=== PATIENT | female | born 1950 | race American Indian/Alaskan Native ===

== ENCOUNTER 2017-03-04 08:09 | Day surgery (SDC) | payer MEDICARE, OTHER ==
[2017-03-04] MEDS ORDERED: NACL 0.9% 1000 ML 1,000 ML ONE (08:44)
[2017-03-04] MEDS ORDERED: XYLOCAINE MPF 2% ONE ×2 (09:00→18:00)
[2017-03-04] MEDS ORDERED: NACL BACTERIOSTATIC INFILTRATI ONE (09:11)
--- NOTE | 2017-03-04 10:42 | Anesthesia Consultation ---
Anesthesia Consult and Med Hx Date of service: 03/04/17 - Airway Anesthetic Teeth Evaluation: Good, Caps (back) ROM Head & Neck: Adequate Mental/Hyoid Distance: Adequate Mallampati Class: Class II Intubation Access Assessment: Probably Good - Pulmonary Exam CTA: Yes - Cardiac Exam Cardiac Exam: RRR - Pre-Operative Health Status ASA Pre-Surgery Classification: ASA2 Proposed Anesthetic Plan: MAC - Pulmonary Hx Smoking: No Hx Sleep Apnea: No - Cardiovascular System Hx Hypertension: Yes (20 YRS) - Central Nervous System Hx Neuromuscular Disorder: No Hx Psychiatric Problems: No - Gastrointestinal Hx Gastroesophageal Reflux Disease: Yes (mild) - Endocrine Hx Renal Disease: No Hx Insulin Dependent Diabetes: No - Hematic Hx Anemia: Yes (RESOLVED) - Other Systems Hx Alcohol Use: No Hx Substance Use: No Hx Cancer: No Hx Obesity: No
--- NOTE | 2017-03-04 10:42 | Anesthesia Day of Surgery ---
Anesthesia Day of Surgery - Day of Surgery Patient Examined: Yes Patient H&P Reviewed: Yes Patient is NPO: Yes
[2017-03-04] MEDS ORDERED: NACL 0.9% 1000 ML 1,000 ML IV SCH (11:00)
[2017-03-04] MEDS ORDERED: WATER FOR IRRIG STERILE ONE (11:26)
[2017-03-04] MEDS ORDERED: WATER FOR IRRIG STERILE IR ONE (11:26)
[2017-03-04] MEDS ORDERED: DIPRIVAN 10 MG/ML IV ONE ×3 (11:40→13:06)
[2017-03-04] MEDS ORDERED: GI SPOT IJ ONE (12:24)
--- NOTE | 2017-03-04 13:18 | Operative Report ---
Operative Report Operative Report: Date of procedure: 03/04/2017 Procedure: Colonoscopy with multiple snare polypectomies, submucosal injection, multiple hot biopsy polypectomies, multiple polyp ablations. Attending physician: Niranjan Mabry MD Telecommunications Clerk: Niranjan Mabry MD Indication: Patient is a 67-year-old female who presents for colorectal cancer screening. She has a past history of colon polyps. Last colonoscopy was over 5 years ago. This colonoscopy is done to evaluate patient so that treatment may be directed based on the findings. Consent: Informed consent was obtained after advising the patient and family regarding nature of this procedure, its indications, potential benefits as well as possible complications including but not limited to bleeding perforation and adverse reaction to medication, infection as well as other cardiopulmonary complications. An informed written and verbal consent was then obtained after due opportunity was provided for questions and answers. Monitoring: Patient was monitored continuously with pulse oximetry and electrocardiographic recordings as well as blood pressure recordings. Vital signs remained stable throughout this procedure with no untoward events. Preoperative assessment: Patient was assessed immediately prior to this procedure for capacity to tolerate monitored anesthesia care and moderate sedation as well as general anesthesia. Patient's ASA classification is 2, Mallampati class is 2, Hyomental distance is 3. Instrument: [employer] computer video colonoscope Medications: Propofol, given intravenously in divided doses for details please refer to anesthesia records. Description of procedure: Patient was placed in the left lateral decubitus position after achieving sedation, a digital rectal examination was performed following which the colonoscope was introduced into the anal verge and advanced to the cecum which was identified by the cecal valve, the appendiceal orifice, as well as by the cecal strap and direct transillumination. The colonoscope was subsequently withdrawn with careful inspection of all mucosal surfaces. Patient tolerated this procedure well and was subsequently taken to the recovery room. The following findings were noted. Findings: Patient had diffuse colonic melanosis. There was a diminutive rectal polyp that was ablated. There was a polyp that was broad-based in the transverse colon that was measuring approximately 1.2 cm it was removed by snare electrocautery. It was sessile. A Hemoclip was placed over the polypectomy site. There is another polyp close to this polyp which measured approximately 8 mm was sessile. It was removed by hot biopsy polypectomy. There were 9 polyps in the ascending colon measuring between 5 mm to 9 mm. All these polyps removed biopsy polypectomy and retrieved. There was another 1 cm polyp in the ascending colon which was again removed by hot biopsy polypectomy. There were additional diminutive polyps in the ascending colon that were ablated. In the cecum, there was a broad-based polyp measuring approximately 1.5 cm.. The base of the polyp was injected with saline to elevate it and it was subsequently removed by snare electrocautery. A Hemoclip was placed over the polypectomy site. Patient had internal hemorrhoids noted on the retroflex examination at the anal verge. The preparation was fair. Impression: Multiple ascending colon polyps status post hot biopsy polypectomy and ablation. Cecal polyp status post submucosal injection and snare polypectomy. Transverse colon polyp status post snare polypectomy. Transverse colon polyp status post hot biopsy polypectomy. Rectal polyp status post ablation. Melanosis coli. Internal hemorrhoids. Plan: Follow pathology report. High-fiber diet. Repeat colonoscopy in one year given that patient had several polyps and given the quality of patient's preparation.
[2017-03-04 13:43] VITALS: BP 125/72
--- NOTE | 2017-03-04 15:24 | Post Anesthesia Evaluation ---
- Post Anesthesia Evaluation Patient Participated: Yes Airway Patent: Yes Stable Respiratory Function: Yes Nausea/Vomiting: No Temp > 96.8F: Yes Pain Manageable: Yes Adequeate Hydration: Yes Anesthesia Complications: No Block Receding Appropriately: Not Applicable Patient on Ventilator: No
== END 2017-03-04 08:10 | disposition home or self-care (01) ==
LOC: GIO 08:09
PROVIDERS: ATTEND Internal Medicine Gastroenterology
DX: Z09 Encounter for follow-up examination after completed treatment for conditions other than malignant neoplasm (principal); Z87.19 Personal history of other diseases of the digestive system; D12.2 Benign neoplasm of ascending colon; D12.0 Benign neoplasm of cecum; D12.3 Benign neoplasm of transverse colon; K62.1 Rectal polyp; K64.8 Other hemorrhoids; I10 Essential (primary) hypertension; K21.9 Gastro-esophageal reflux disease without esophagitis; Z88.6 Allergy status to analgesic agent; Z91.041 Radiographic dye allergy status; Z91.013 Allergy to seafood; Z88.8 Allergy status to other drugs, medicaments and biological substances; Z82.3 Family history of stroke; Z80.3 Family history of malignant neoplasm of breast; Z83.3 Family history of diabetes mellitus; Z86.2 Personal history of diseases of the blood and blood-forming organs and certain disorders involving the immune mechanism
CPT/HCPCS: 45380; 45381; 45384; 45385; 45388; 88305; J2704; J7030